=== PATIENT | male | born 1950 | race Caucasian/White ===

== ENCOUNTER 2018-01-10 09:42 | Day surgery (SDC) ==
[2018-01-10] MEDS ORDERED: LIDOCAINE 1% 20 ML MDV ID STA (10:22)
[2018-01-10] MEDS ORDERED: DIPRIVAN 20 ML VIAL IVP ONE (11:15)
[2018-01-10] MEDS ORDERED: VERSED ONE (11:15)
[2018-01-10 15:55] VITALS: BP 115/76; TEMP 98.6
--- NOTE | 2018-01-11 10:43 | OP ---
PROCEDURE: COLONOSCOPY TO CECUM WITH SNARE POLYPECTOMY. ENDOSCOPIST: Deepthi BOOKER M.D. INDICATION: HISTORY OF POLYPS. INSTRUMENT: [id number]. MEDICATION: PER ANESTHESIA. PROCEDURE: The patient was positioned for colonoscopy. The digital rectal exam was negative. The colonoscope was inserted through the anus and advanced to the cecum. The cecum was identified using the ileocecal valve and the appendiceal orifice as landmarks. The scope was slowly withdrawn through an adequately prepped colon. [place] Bowel Prep Score 2+3+3=8. In the cecum a small polyp is removed using snare cautery. A second small polyp at 50cm removed using snare cautery. Scattered diverticulosis noted in the left colon. Retroflex exam was otherwise normal. Withdraw time 11 minutes and 50 seconds. PLAN: 1. Suggest repeat colonoscopy in 5 years. CC: Dr. Meme [place]
== END 2018-01-10 12:20 | disposition home or self-care (01) ==
LOC: SURG 09:42
PROVIDERS: ATTEND Internal Medicine Gastroenterology
DX: Z09 Encounter for follow-up examination after completed treatment for conditions other than malignant neoplasm (principal); Z86.010 Personal history of colon polyps; K63.5 Polyp of colon; K57.30 Diverticulosis of large intestine without perforation or abscess without bleeding

== ENCOUNTER 2018-12-29 14:39 | Outpatient (CLI) ==
--- NOTE | 2018-12-29 16:04 | DI ---
EXAM: CERVICAL SPINE, 5 VIEWS HISTORY: Neck pain. FINDINGS: Compared to 05/28/2011. Diffuse degenerative changes of the spine are present most noted at the facet levels. Oblique views reveal probable multilevel bony encroachment upon the neural fora lea. There is no fracture or loss of vertebral body height. No spondylolisthesis or scoliosis. Lateral masses of C1 and C2 are normally aligned and the odontoid process is intact. IMPRESSION: 1. Diffuse degenerative changes of the cervical spine mostly affecting the facets and more noticeabl e since the prior dated exam in 2010.
== END 2018-12-29 14:40 | disposition home or self-care (01) ==
LOC: RAD 14:39
PROVIDERS: ATTEND Family Medicine
DX: M54.2 Cervicalgia (principal)